=== PATIENT | female | born 1975 | race African-American/Black ===

== ENCOUNTER 2018-02-22 09:29 | Emergency (ER) | payer OTHER ==
[~2018-02-22] VITALS: Ht 162.6 cm; Wt 65.8 kg
[2018-02-22 10:38] LABS: PLATELET COUNT 202 K/uL (152-353)
[2018-02-22 10:55] LABS: POTASSIUM 3.4 mmol/L (3.6-5.2)
[2018-02-22 13:00] VITALS: BP 90/51; TEMP 98
== END 2018-02-22 13:30 | disposition home or self-care (01) ==
LOC: ED 09:29
DX: K80.20 Calculus of gallbladder without cholecystitis without obstruction (principal); D25.9 Leiomyoma of uterus, unspecified
CPT/HCPCS: 36415; 80053; 81000; 85027; 96374; 96375; 99284; J1885; J2405; Q9963

== ENCOUNTER 2021-01-11 06:28 | Emergency (ER) | payer OTHER ==
[2021-01-18 16:25] LABS: POTASSIUM 3.9 mmol/L (3.6-5.2)
[2021-01-18 16:27] LABS: PLATELET COUNT 259 K/uL (152-353)
== END 2021-01-11 09:26 | disposition home or self-care (01) ==
LOC: ED 06:28
PROVIDERS: Emergency Medicine Emergency Medical Services
DX: E27.8 Other specified disorders of adrenal gland (principal); D64.89 Other specified anemias
CPT/HCPCS: 36415; 80053; 81000; 81025; 82150; 83690; 85027; 87651; 96360; 96375; 99284; J1885; J2270; J2405